=== PATIENT | male | born 1965 | race Caucasian/White ===

== ENCOUNTER 2021-03-29 10:26 | Inpatient (IN) | payer OTHER ==
[~2021-03-29] VITALS: Ht 182.9 cm; Wt 93.2 kg
[2021-03-29] MEDS ORDERED: ASPIRIN 81 MG CHEW TAB ONE (11:05)
[2021-03-29] MEDS ORDERED: ONDANSETRON HCL INJ 2MG/ML 2ML 2 MG/ML VIAL ONE (11:05)
[2021-03-29] MEDS ORDERED: NITROGLYCERIN 2% OINT 1 GM PKT ONE ×2 (11:05→11:21)
[2021-03-29] MEDS ORDERED: MORPHINE SULFATE INJ 4 MG/ML INJ 1ML ONE (11:05)
[2021-03-29] MEDS ORDERED: ONDANSETRON HCL INJ 2MG/ML 2ML 2 MG/ML VIAL IV STA (11:23)
[2021-03-29] MEDS ORDERED: MORPHINE SULFATE INJ 4 MG/ML INJ 1ML IV PRN (11:30)
[2021-03-29] MEDS ORDERED: PROMETHAZINE HCL (IM) 25 MG/ML VIAL IM PRN (11:30)
[2021-03-29] MEDS ORDERED: ASPIRIN 81 MG CHEW TAB PO ONE ×3 (11:30→12:45)
[2021-03-29] MEDS ORDERED: SODIUM CHLORIDE FLUSH 10 ML SYR INJ PRN (11:30)
[2021-03-29] MEDS ORDERED: NITROGLYCERIN 2% OINT 1 GM PKT TOP ONE (11:30)
[2021-03-29] MEDS ORDERED: MORPHINE SULFATE INJ 2 MG/ML SYR IV PRN ×2 (11:30→12:45)
[2021-03-29] MEDS ORDERED: HEPARIN SOD/SOD CHLORIDE 2,000 ML ONE (11:56)
[2021-03-29] MEDS ORDERED: IOPAMIDOL 370 MG/ML 200 ML INFUS..BTL INJ ONE (11:56)
[2021-03-29] MEDS ORDERED: LIDOCAINE HCL 2% LOCAL 20 ML VIAL ONE (11:56)
[2021-03-29] MEDS ORDERED: SODIUM CHLORIDE 0.9% 1000ML 1,000 ML ONE (11:57)
[2021-03-29] MEDS ORDERED: NITROGLYCERIN/D5W 200 MCG/ML 250 ML ONE (11:57)
[2021-03-29] MEDS ORDERED: VERAPAMIL HCL 2.5 MG/ML 2 ML VIAL ONE (11:58)
[2021-03-29] MEDS ORDERED: BIVALRIUDIN 250 MG/VIAL VIAL IV ONE (12:02)
[2021-03-29] MEDS ORDERED: SODIUM CHLORIDE 0.9% 50ML 50 ML ONE (12:03)
[2021-03-29] MEDS ORDERED: MIDAZOLAM HCL 2 MG/2 ML VIAL ONE ×2 (12:14→12:31)
[2021-03-29] MEDS ORDERED: FENTANYL CITRATE/PF 100MCG/2 ML INJ ONE ×2 (12:15→12:32)
[2021-03-29] MEDS ORDERED: Vancomycin IV 1 GM VIAL ONE (12:19)
[2021-03-29] MEDS ORDERED: SODIUM CHLORIDE 0.9% 250ML 250 ML ONE (12:19)
[2021-03-29] MEDS ORDERED: EPTIFIBATIDE 10 ML ONE (12:39)
[2021-03-29] MEDS ORDERED: PRASUGREL 10 MG TAB ONE (12:43)
[2021-03-29] MEDS ORDERED: ONDANSETRON HCL INJ 2MG/ML 2ML 2 MG/ML VIAL IV PRN (12:45)
[2021-03-29] MEDS ORDERED: LISINOPRIL 10 MG TAB PO ONE (12:45)
[2021-03-29] MEDS: FAMOTIDINE 20 MG TAB PO SCH (14:06)
[2021-03-29 17:10] VITALS: BP 117/76
[2021-03-29 18:17] VITALS: BP 117/76
[2021-03-29 18:31] VITALS: BP 117/76
[2021-03-29 20:00] VITALS: BP 123/82
[2021-03-29] MEDS: NITROGLYCERIN 0.4 MG SUBL SL PRN ×3 (20:35→21:05)
[2021-03-29] MEDS: ATORVASTATIN 20 MG TAB PO SCH (20:49)
[2021-03-29] MEDS: SODIUM CHLORIDE 0.9% 1000ML 1,000 ML IV SCH (20:56)
[2021-03-29] MEDS: HYDROCODONE/APAP 5MG-325MG TAB PO PRN (20:56)
[2021-03-29] MEDS ORDERED: ZOLPIDEM TARTRATE 5 MG TAB PO PRN (21:00)
[2021-03-29 21:45] LABS: CREATINE KINASE MB 88.8 ng/mL (0-5.0)
[2021-03-29 22:15] VITALS: BP 123/82
[2021-03-30] VITALS (8 sets, daily range): BP systolic 110–148; BP diastolic 74–94
[2021-03-30] MEDS: FAMOTIDINE 20 MG TAB PO SCH ×2 (01:45→12:08)
[2021-03-30 05:05] LABS: BASOPHILS # (AUTO) 0.1 (0.0-0.1); BASOPHILS % 0.7 % (0.0-1.0); EOSINOPHILS # (AUTO) 0.2 (0.0-0.4); EOSINOPHILS % 2.2 % (0.0-6.0); HEMATOCRIT 46.9 % (38.2-49.6); LYMPHOCYTES % 12.1 % (18.0-39.1); MEAN CORPUSCULAR HEMOGLOBIN 29.8 pg (28-32); MEAN CORPUSCULAR VOLUME 93.1 fL (81-99); MONOCYTES # (AUTO) 0.8 (0.2-0.8); MONOCYTES % 9.2 % (4.4-11.3); NEUTROPHILS # (AUTO) 6.4 (2.1-6.9); NEUTROPHILS % 75.3 % (38.7-80.0); PLATELET COUNT 225 x10e3/uL (140-360); RED BLOOD COUNT 5.04 x10e6/uL (4.3-5.7)
[2021-03-30 05:25] LABS: ALBUMIN 3.7 g/dL (3.5-5.0); ALBUMIN/GLOBULIN RATIO 1.9 (0.8-2.0); CALCIUM 8.3 mg/dL (8.4-10.2); CREATININE, SERUM 1.04 mg/dL (0.72-1.25); MAGNESIUM 1.8 MG/DL (1.3-2.1); PHOSPHORUS 3.2 MG/DL (2.3-4.7)
[2021-03-30 06:10] LABS: CREATINE KINASE MB 51.8 ng/mL (0-5.0)
[2021-03-30] MEDS: METOPROLOL SUCCINATE 25 MG TAB XL PO SCH (08:07)
[2021-03-30] MEDS: ASPIRIN 81 MG ENTERIC COATED PO SCH (08:08)
[2021-03-30] MEDS: PRASUGREL 10 MG TAB PO SCH (08:08)
[2021-03-30 08:36] LABS: CHOL/HDL RATIO 2.6 (3.9-4.7)
[2021-03-30] MEDS: SODIUM CHLORIDE 0.9% 1000ML 1,000 ML IV SCH ×2 (09:40→18:44)
[2021-03-30] MEDS: HYDROCODONE/APAP 5MG-325MG TAB PO PRN (12:40)
[2021-03-30] MEDS: ONDANSETRON HCL INJ 2MG/ML 2ML 2 MG/ML VIAL IV PRN ×3 (12:40→21:51)
[2021-03-30 13:08] LABS: CREATINE KINASE MB 25.6 ng/mL (0-5.0)
[2021-03-30] MEDS: ATORVASTATIN 20 MG TAB PO SCH (20:13)
[2021-03-31] VITALS: BP 150/94
[2021-03-31] MEDS: FAMOTIDINE 20 MG TAB PO SCH (00:42)
[2021-03-31] MEDS: SODIUM CHLORIDE 0.9% 1000ML 1,000 ML IV SCH (03:00)
[2021-03-31 04:00] VITALS: BP 158/94
[2021-03-31 08:00] VITALS: BP 155/99
[2021-03-31 08:20] VITALS: BP 155/99
[2021-03-31] MEDS: METOPROLOL SUCCINATE 25 MG TAB XL PO SCH (08:51)
[2021-03-31] MEDS: ASPIRIN 81 MG ENTERIC COATED PO SCH (08:51)
[2021-03-31] MEDS: PRASUGREL 10 MG TAB PO SCH (08:51)
[2021-03-31] MEDS ORDERED: ASPIRIN81 MG PO (10:06)
[2021-03-31] MEDS ORDERED: ATORVASTATIN CA20 MG PO (10:07)
[2021-03-31] MEDS ORDERED: EFFIENT10 MG PO (10:07)
[2021-03-31] MEDS ORDERED: METOPROLOL SUCC25 MG PO (10:08)
[2021-03-31] MEDS ORDERED: LISINOPRIL10 MG PO (10:08)
== END 2021-03-31 10:35 | disposition home or self-care (01) | DRG 247 ==
LOC: FSED 10:34 → CATH LAB 11:20 → ERHOLD 11:27 → IMCU 13:20 → MED/SURG3 03-30 22:31
PROVIDERS: ADMIT Internal Medicine Interventional Cardiology; ATTEND Internal Medicine Interventional Cardiology
PROC: 027034Z Dilation of Coronary Artery, One Artery with Drug-eluting Intraluminal Device, Percutaneous Approach (ICD-10-PCS; principal; 2021-03-29)
PROC: 4A023N7 Measurement of Cardiac Sampling and Pressure, Left Heart, Percutaneous Approach (ICD-10-PCS; 2021-03-29)
PROC: B2111ZZ Fluoroscopy of Multiple Coronary Arteries using Low Osmolar Contrast (ICD-10-PCS; 2021-03-29)
PROC: B2151ZZ Fluoroscopy of Left Heart using Low Osmolar Contrast (ICD-10-PCS; 2021-03-29)
DX: I21.09 ST elevation (STEMI) myocardial infarction involving other coronary artery of anterior wall (principal); I25.10 Atherosclerotic heart disease of native coronary artery without angina pectoris; I10 Essential (primary) hypertension; E78.5 Hyperlipidemia, unspecified; I25.2 Old myocardial infarction; Z95.5 Presence of coronary angioplasty implant and graft; Z88.8 Allergy status to other drugs, medicaments and biological substances
CPT/HCPCS: 36415; 80053; 80061; 82550; 82553; 83735; 84100; 84484; 85025; 85379; 92920; 92928; 93005; 93306; 93458; 96374; 96375; 99152; 99153; 99284; C1725; C1874; J0583; J1327; J2001; J2250; J2270; J2405; J3010; J3370; J7030; J7050; Q9967